=== PATIENT | female | born 1940 | race Caucasian/White ===

== ENCOUNTER 2017-01-16 09:23 | Emergency (ER) | payer BC ==
[~2017-01-16] VITALS: Ht 167.6 cm; Wt 58.1 kg
--- NOTE | 2017-01-16 09:28 | PHYS DOC ---
Adult General Chief Complaint Chief Complaint: FLANK PAIN HPI HPI Patient is a 76 year old female presenting to the emergency department for evaluation of left lower back pain that started 2 days ago and has worsened. She says that she lifted an 8 foot ladder and then went to an urgent care yesterday and was prescribed baclofen. She has not taken anything else for her symptoms and she says that this medication is not helping. She says that the pain is more intense now shoots down into her but she denies any weakness numbness tingling fevers chills dysuria hematuria nausea vomiting. She is in no obvious distress with normal vital signs. Review of Systems Review of Systems Constitutional: Denies fever or chills [] Cardiovascular: No additional information not addressed in HPI [] GI: Denies abdominal pain, nausea, vomiting, bloody stools or diarrhea [] : Denies dysuria or hematuria [] Musculoskeletal: + back pain. No joint pain [] Neurologic: Denies headache, focal weakness or sensory changes [] Current Medications Current Medications Current Medications Medications (Trade) Dose Ordered Sig/[facility] Start Time Stop Time Status Last Admin Dose Admin Diazepam (Valium) 5 mg 1X ONCE 01/16/17 10:00 01/16/17 10:01 DC 01/16/17 09:52 5 MG Ketorolac Tromethamine (Toradol) 30 mg 1X ONCE 01/16/17 10:00 01/16/17 10:01 DC 01/16/17 09:53 30 MG Ondansetron HCl (Zofran Odt) 4 mg 1X ONCE 01/16/17 10:00 01/16/17 10:01 DC 01/16/17 09:52 4 MG Oxycodone/ Acetaminophen (Percocet 5/325) 1 tab 1X ONCE 01/16/17 10:00 01/16/17 10:01 DC 01/16/17 09:52 1 TAB Allergies Allergies Allergies Coded Allergies Type Severity Reaction Last Updated Verified Penicillins Allergy Severe SWELLING 01/16/17 Yes propoxyphene Allergy Intermediate N/V, RASH 01/16/17 Yes Physical Exam Physical Exam Constitutional: Well developed, well nourished, no acute distress, non-toxic appearance. [] Cardiovascular:Heart rate regular rhythm, no murmur [] Lungs & Thorax: Bilateral breath sounds clear to auscultation [] Abdomen: Bowel sounds normal, soft, no tenderness, no masses, no pulsatile masses. [] Back: + L lower lumbar tenderness, no CVA tenderness. [] Extremities: No tenderness, no cyanosis, no clubbing, ROM intact, no edema. [] Neurologic: Alert and oriented X 3, normal motor function, normal sensory function, no focal deficits noted. [] Current Patient Data Vital Signs Vital Signs Date Time Temp Pulse Resp B/P (MAP) Pulse Ox O2 Delivery O2 Flow Rate FiO2 01/16/17 09:39 98.3 64 20 96 Room Air 98.3 Lab Values Laboratory Tests Test 01/16/17 09:30 Urine Collection Type Unknown Urine Color Yellow Urine Clarity Clear Urine pH 5.5 Urine Specific [place] 1.015 Urine Protein Negative mg/dL (NEG-TRACE) Urine Glucose (UA) Negative mg/dL (NEG) Urine Ketones (Stick) Negative mg/dL (NEG) Urine Blood Negative (NEG) Urine Nitrite Negative (NEG) Urine Bilirubin Large (NEG) Urine Urobilinogen Dipstick 0.2 mg/dL (0.2 mg/dL) Urine Leukocyte Esterase Small (NEG) Urine RBC 1-2 /HPF (0-2) Urine WBC Occ /HPF (0-4) Urine Squamous Epithelial Cells Few /LPF Urine Bacteria Few /HPF (0-FEW) Urine Hyaline Casts Few /HPF Urine Mucus Slight /LPF EKG EKG [] Radiology/Procedures Radiology/Procedures Indication: Left flank pain for 2 days. Technique: Axial images and coronal and sagittal reformatted images are provided. No comparison is available. One or more of the following individualized dose reduction techniques were utilized for this examination: 1. Automated exposure control 2. Adjustment of the mA and/or kV according to patient size 3. Use of iterative reconstruction technique Findings: There is minimal atelectasis in the lung bases. There is no pleural effusion. The heart is not enlarged. Solid organ evaluation is limited without contrast. There are 2 low-density lesions within the liver, not simple cysts, left hepatic lobe measures 2 cm in size and right hepatic lobe 2.5 cm. Gallbladder is contracted or absent. A few benign calcifications are noted in the spleen. The pancreas and the adrenals are unremarkable. There is atheromatous disease in the abdominal aorta without aneurysm. Neither ureter is dilated. Neither ureter is well followed in its entirety. Calcifications on the right near the right ureter appear to be phleboliths in the gonadal veins. No bladder calculus is identified. Lack of IV or oral contrast limits evaluation of bowel. There is no bowel obstruction or mural thickening. Colon is grossly unremarkable. Calcified phleboliths are noted in the pelvis. Uterus is presumed surgically absent. There are degenerative changes in the spine. Impression: 1. Two low-density lesions within the liver, indeterminate, recommend hepatic mass protocol CT. Metastatic disease is the primary consideration. Report was called to the ER physician. 2. No definite obstructing or nonobstructing renal calculus. Calcifications along the expected course of the right ureter appear to be phleboliths. DICTATED and SIGNED BY: CHARLES LOPEZ MD DATE: 01/16/17 1025 Course & Med Decision Making Course & Med Decision Making Patient with left lower lumbar pain that is likely lumbar strain. We'll check urine CT and then reassess. CT and urine are unremarkable for acute process. I told her that she needs to follow with her primary care provider regarding incidental liver findings to have this checked for cancer. She verbalized understanding. She says that her left leg pain is only slightly improved and is requesting more medicine so she' ll be given an IM shot of Dilaudid. Patient told that she needs to rest her back use ice and heat and take 400 mg of ibuprofen every 6 hours and the Percocet for breakthrough pain and Valium is for spasm. She was told to not take the baclofen that she was prescribed and follow with her primary care provider in 2 days to ensure improvement and come back to the ER sooner with any worsening pain weakness numbness tingling or other general concerns. Patient aware and agreeable with plan and verbalized understanding of the above instructions. Dragon Disclaimer Dragon Disclaimer This electronic medical record was generated, in whole or in part, using a voice recognition dictation system. Departure Departure Impression: Primary Impression: Lumbar strain Disposition: 01 HOME, SELF-CARE Condition: GOOD Referrals: NON,STAFF (PCP) Patient Instructions: Back Pain, Adult Additional Instructions: Continue taking anti-inflammatories and use the Percocet for breakthrough pain. The Valium is for spasm. Taking the Percocet and Valium especially in combination can make you quite sleepy and lethargic. Follow with your primary care provider regarding the CT results and your pain and come back to the ER sooner with any worsening pain weakness or other general concerns. Scripts Diazepam (VALIUM) 5 Mg Tablet 5 MG PO TID Y for MUSCLE SPASMS, #10 TAB Prov: RENETTA RICK DO 01/16/17 Oxycodone/Apap 5-325 (PERCOCET 5-325 MG TABLET) 1 Each Tablet 1 TAB PO PRN Q6HRS Y for PAIN, #20 TAB 0 Refills Prov: RENETTA RICK DO 01/16/17 RENETTA RICK DO January 16, 2017 09:28
[2017-01-16 09:53] LABS: BILIRUBIN,URINE LARGE (NEG); GLUCOSE,URINE NEGATIVE (NEG); NITRITE,URINE NEGATIVE (NEG); PH,URINE 5.5; PROTEIN,URINE NEGATIVE (NEG-TRACE); UROBILINOGEN,URINE 0.2 mg/dL (0.2 mg/dL)
[2017-01-16] MEDS ORDERED: oxyCODONE/APAP 5/325 1 TAB TABLET PO ONE (10:00)
[2017-01-16] MEDS ORDERED: diazePAM 5 MG TABLET PO ONE (10:00)
[2017-01-16] MEDS ORDERED: ONDANSETRON ODT 4 MG TAB.RAPDIS. PO ONE (10:00)
[2017-01-16] MEDS ORDERED: KETOROLAC TROMETHAMINE 30 MG/ML INJ. IM ONE (10:00)
[2017-01-16 10:31] LABS: BACTERIA,URINE FEW /HPF (0-FEW); SQUAMOUS EPITHELIAL CELL,UR FEW /LPF; WBC,URINE OCC /HPF (0-4)
--- NOTE | 2017-01-16 10:35 | RAD ---
Indication: Left flank pain for 2 days. Technique: Axial images and coronal and sagittal reformatted images are provided. No comparison is available. One or more of the following individualized dose reduction techniques were utilized for this examination: 1. Automated exposure control 2. Adjustment of the mA and/or kV according to patient size 3. Use of iterative reconstruction technique Findings: There is minimal atelectasis in the lung bases. There is no pleural effusion. The heart is not enlarged. Solid organ evaluation is limited without contrast. There are 2 low-density lesions within the liver, not simple cysts, left hepatic lobe measures 2 cm in size and right hepatic lobe 2.5 cm. Gallbladder is contracted or absent. A few benign calcifications are noted in the spleen. The pancreas and the adrenals are unremarkable. There is atheromatous disease in the abdominal aorta without aneurysm. Neither ureter is dilated. Neither ureter is well followed in its entirety. Calcifications on the right near the right ureter appear to be phleboliths in the gonadal veins. No bladder calculus is identified. Lack of IV or oral contrast limits evaluation of bowel. There is no bowel obstruction or mural thickening. Colon is grossly unremarkable. Calcified phleboliths are noted in the pelvis. Uterus is presumed surgically absent. There are degenerative changes in the spine. Impression: 1. Two low-density lesions within the liver, indeterminate, recommend hepatic mass protocol CT. Metastatic disease is the primary consideration. Report was called to the ER physician. 2. No definite obstructing or nonobstructing renal calculus. Calcifications along the expected course of the right ureter appear to be phleboliths.
[2017-01-16] MEDS ORDERED: OXYC-323 PO (10:44)
[2017-01-16] MEDS ORDERED: DIAZ5TAB PO (10:44)
[2017-01-16] MEDS ORDERED: HYDROmorphone 2 MG/ML VIAL IM ONE (10:45)
[2017-01-16 11:00] VITALS: BP 168/52
== END 2017-01-16 11:14 | disposition home or self-care (01) ==
LOC: ER 10:42
DX: S39.012A Strain of muscle, fascia and tendon of lower back, initial encounter (principal); Z88.0 Allergy status to penicillin; Z88.8 Allergy status to other drugs, medicaments and biological substances; X50.9XXA Other and unspecified overexertion or strenuous movements or postures, initial encounter; Y93.89 Activity, other specified; Y92.89 Other specified places as the place of occurrence of the external cause; Y99.8 Other external cause status
CPT/HCPCS: 74176; 81001; 87086; 96372; 99285; J1885; Q0162

== ENCOUNTER → 2017-02-05 | Outpatient (CLI) | payer BC ==
[2017-01-16 11:00] VITALS: BP 168/52
[~2017-02-05] MED LIST: ATOR10TA60 PO; DIAZ5TAB PO; ETOD400T PO; HYDR12.58 PO; IOHEXOL 300 MG/ML 75 ML VIAL IV ONE; LEVO25TA4 PO; LISI1TAB5 PO; METF500T4 PO; OXYC-323 PO
[2017-02-05 12:41] LABS: CREATININE 1.1 mg/dL (0.6-1.0); GFR 48.3
== END | disposition home or self-care (01) ==
LOC: CT 10:59
PROVIDERS: ATTEND Family Medicine
DX: K76.89 Other specified diseases of liver (principal); I10 Essential (primary) hypertension; Z79.4 Long term (current) use of insulin
CPT/HCPCS: 36415; 82565; 84520; Q9967

== ENCOUNTER → 2017-02-08 | Outpatient (CLI) | payer BC ==
[2017-01-16 11:00] VITALS: BP 168/52
--- NOTE | 2017-02-08 11:40 | RAD ---
EXAM: CT abdomen with and without contrast. HISTORY: Liver lesion. TECHNIQUE: CT of the abdomen was performed before and after the intravenous administration of 60 mL Omnipaque 300. COMPARISON: 01/16/2017. FINDINGS: Lung windows through the bases reveal mild atelectasis or scarring. Bone windows reveal a moderate at shaped lumbar scoliosis with moderate to severe degenerative disc disease. There are no suspicious lesions. The gallbladder is surgically absent. The common duct is at the upper limits of normal caliber but tapers normally distally. There is a small cyst laterally in the left kidney. There are calcified granulomas in the spleen. There are no pathologically enlarged lymph nodes. The adrenal glands and pancreas are unremarkable. There is no obstruction. There are multiple hepatic lesions in segments 2, 3, 8, 5 and 6. The largest in segment 5 measures 2.8 x 1.4 cm. Another in segment 2 2 measures 2.3 x 1.9 cm. The remainder are smaller. They demonstrate progressive peripheral nodular enhancement consistent with benign hemangiomas. No clearly suspicious hepatic lesions are seen. IMPRESSION: 1. At least 5 hepatic lesions are consistent with benign hemangiomas. No clearly suspicious lesions. 2. Mild extrahepatic biliary dilatation status post cholecystectomy. Correlate for cholestasis to assess significance. One or more of the following individualized dose reduction techniques were utilized for this examination: 1. Automated exposure control. 2. Adjustment of the mA and/or kV according to patient size. 3. Use of iterative reconstruction technique.
== END | disposition home or self-care (01) ==
LOC: CT 10:04
PROVIDERS: ATTEND Family Medicine
DX: K76.9 Liver disease, unspecified (principal); D18.03 Hemangioma of intra-abdominal structures; Z90.49 Acquired absence of other specified parts of digestive tract
CPT/HCPCS: 74170; Q9967